=== PATIENT | male | born 1955 | race Caucasian/White ===

== ENCOUNTER 2018-12-02 01:03 | Emergency (ER) | payer MEDICAID, MEDICARE ==
[~2018-12-02 01:03] MED LIST: ASPI-1044 PO; ATOR20TA17 PO; CENTSILV PO; GABA100C14 PO; GLIM4TAB55 PO; HYDR25TA6 PO; HYDR30CR91 RC; INSU100V19 SQ; LORA10TA PO; METF100010 PO; MONT10TA21 PO; NEBI10TA2 PO; PIOG30TA19 PO; PROC5TAB29 PO
[2018-12-02] MEDS ORDERED: ACETAMINOPHEN 325 MG TAB PO ONE (02:30)
--- NOTE | 2018-12-02 03:55 | ERD ---
ER Documentation Chief Complaint Chief Complaint HPI This is a 63-year-old male with a history of CP, who presents for evaluation of a mechanical fall, he tripped on his foot and fell face forward. He sustained an abrasion over his upper nasal bridge, he endorses a headache, and some mild neck pain. He is not intoxicated, he is not on any blood thinners, he is not feeling of weakness in his teeth. He otherwise sustained no other injuries. ROS All systems reviewed and are negative except as per history of present illness. Medications Home Meds Reported Medications Hydrocortisone* Rectal (Protozone-HC*) 30 Gm Cr, 2.5 GM RC 02/17/12 Nebivolol Hcl* (Bystolic*) 10 Mg Tablet, 10 MG PO DAILY 02/17/12 Prochlorperazine* (Compazine*) 5 Mg Tablet, 5 MG PO ASNEEDED TID 02/17/12 Loratadine (Loratadine) 10 Mg Tablet, 10 MG PO DAILY 02/17/12 Insulin Glargine,Hum.rec.anlog (Lantus) 100 U/Ml Vial, 25 SQ DAILY 02/17/12 Gabapentin* (Gabapentin*) 100 Mg Capsule, 100 MG PO TID 02/17/12 Glimepiride* (Amaryl*) 4 Mg Tablet, 4 MG PO DAILY 02/17/12 Hydrochlorothiazide (Hydrochlorothiazide) 25 Mg Tablet, 25 MG PO DAILY 02/17/12 Atorvastatin (Lipitor) 20 Mg Tablet, 20 MG PO 02/17/12 Aspirin Delayed Release (Aspirin Delayed Release) 81 Mg Tablet.dr, 81 MG PO DAILY 02/17/12 Pioglitazone Hcl* (Actos*) 30 Mg Tablet, 30 MG PO DAILY 02/17/12 Metformin Hcl* (Metformin Hcl*) 1,000 Mg Tablet, 1000 MG PO BID 02/17/12 Montelukast Sodium* (Singulair*) 10 Mg Tablet, 10 MG PO DAILY 02/17/12 Multivitamins/Minerals (Centrum Silver) 1 Tab Tab, 1 TAB PO DAILY 02/17/12 Allergies Allergies: Coded Allergies: Sulfa (Sulfonamide Antibiotics) (Verified Allergy, Unknown, CONTINOUS SNEEZING, 12/02/18) codeine (Verified Allergy, Unknown, RASH, 12/02/18) morphine (Verified Allergy, Unknown, 12/02/18) PMhx/Soc History of Surgery: Yes (BACK SURGERY X5, TONSILLECTOMY) Anesthesia Reaction: No Hx Neurological Disorder: Yes (BALANCE PROB HIS NORMAL) Hx Respiratory Disorders: Yes (ENVIROMENTAL ALLERGIES) Hx Cardiac Disorders: Yes (HTN , HIGH CHOL) Hx Psychiatric Problems: No Hx Miscellaneous Medical Probl: Yes (CEREBRAL PALSY) Hx Alcohol Use: No Hx Substance Use: No Hx Tobacco Use: No Smoking Status: Never smoker Physical Exam Vitals Vital Signs Date Temp Pulse Resp B/P (MAP) Pulse Ox O2 O2 Flow FiO2 Time Delivery Rate 12/02/18 97.7 57 20 136/50 95 Room Air 01:25 (78) Physical Exam Const: No acute distress Head: There is a superficial abrasion over the nasal bridge, there are no lacerations, there is no septal hematoma or deviation. Midface is stable, there are no scalp hematomas, there is no periorbital ecchymosis. Eyes: Normal Conjunctiva ENT: Normal External Ears, Nose and Mouth. Neck: Full range of motion. No meningismus. Resp: Clear to auscultation bilaterally Cardio: Regular rate and rhythm, no murmurs Abd: Soft, non tender, non distended. Normal bowel sounds Skin: No petechiae or rashes Back: No midline or flank tenderness Ext: No cyanosis, or edema Neur: Awake and alert, normal strength, no cerebellar ataxia Psych: Normal Mood and Affect Results 24 hrs Current Medications Medications Dose Sig/Jose Start Time Status Last (Trade) Ordered Route PRN Stop Time Admin Dose Reason Admin 650 mg ONCE ONCE 12/02/18 DC 12/02/18 Acetaminophen PO 02:30 02:25 (Tylenol 12/02/18 02:31 Tab) Procedures/MDM This is a 63-year-old male who presents for evaluation of mechanical fall. On exam patient is alert and awake, in no acute distress. His physical exam is unremarkable aside from a minor superficial abrasion. Given his age CT imaging was performed, his CT brain and neck were both negative for acute findings. Patient had no syncopal episode, at discharge she was in no acute distress. Departure Diagnosis: Primary Impression: Fall with no significant injury Encounter type: initial encounter Qualified Codes: W19.XXXA - Unspecified fall, initial encounter Condition: Stable KATHARINE MADRID MD Dec 02, 2018 03:55
[2018-12-02 08:58] VITALS: BP 131/65; PULSE 61; RESP 20
== END 2018-12-02 09:43 | disposition home or self-care (01) ==
LOC: E/R 01:03
DX: E11.9 Type 2 diabetes mellitus without complications (principal); I10 Essential (primary) hypertension; Z79.82 Long term (current) use of aspirin; Z79.4 Long term (current) use of insulin; W01.0XXA Fall on same level from slipping, tripping and stumbling without subsequent striking against object, initial encounter; Y92.9 Unspecified place or not applicable; R51 Headache
CPT/HCPCS: 70450; 72125